=== PATIENT | female | born 1975 | race Caucasian/White ===

== ENCOUNTER 2020-08-28 16:49 | Emergency (ER) | payer OTHER ==
[~2020-08-28 16:49] MED LIST: CEFUROXIME500 MG PO; KEFLEX500 MG PO; MEDROL DOSEPAK 24 MG PO; NAPROSYN500 MG PO; ZOFRAN4 MG PO
[2020-08-28 19:15] LABS: HEMOGLOBIN 12.9 gm/dl (12.3-15.3); RED BLOOD COUNT 4.74 M/UL (4.00-5.10); WHITE BLOOD COUNT 7.5 K/UL (4.5-11.0)
[2020-08-28 19:45] LABS: BUN/CREATININE RATIO 23 (0-10)
[2020-08-29] MEDS ORDERED: ASPIRIN CHEWABL81 MG PO (00:52)
[2020-08-29] MEDS ORDERED: DOXYCYCLINE HY100 MG PO (00:52)
[2020-08-29] MEDS ORDERED: DECADRON6 MG PO (00:52)
== END 2020-08-29 01:20 | disposition home or self-care (01) ==
LOC: ER1 16:49
PROVIDERS: Emergency Medicine
DX: U07.1 COVID-19 (principal); J12.82 Pneumonia due to coronavirus disease 2019; I48.91 Unspecified atrial fibrillation; E66.9 Obesity, unspecified; E11.9 Type 2 diabetes mellitus without complications; I10 Essential (primary) hypertension; Z79.01 Long term (current) use of anticoagulants
CPT/HCPCS: 36600; 71045; 71046; 80053; 81001; 82550; 82553; 82803; 83605; 83874; 84484; 85025; 87040; 93005; 99285; M0239

== ENCOUNTER 2020-11-06 20:10 | Emergency (ER) | payer OTHER ==
[~2020-11-06 20:10] MED LIST changes: +ASPIRIN CHEWABL81 MG PO; +DECADRON6 MG PO; +DOXYCYCLINE HY100 MG PO
[2020-11-07 00:25] LABS: HEMOGLOBIN 12.7 gm/dl (12.3-15.3); RED BLOOD COUNT 4.51 M/UL (4.00-5.10); WHITE BLOOD COUNT 13.4 K/UL (4.5-11.0)
[2020-11-07 00:42] LABS: BUN/CREATININE RATIO 25 (0-10)
== END 2020-11-07 05:52 | disposition short-term general hospital (02) ==
LOC: ER1 20:10
PROVIDERS: Emergency Medicine
DX: R42 Dizziness and giddiness (principal); I48.91 Unspecified atrial fibrillation; H55.00 Unspecified nystagmus; F41.9 Anxiety disorder, unspecified; I10 Essential (primary) hypertension; Z79.899 Other long term (current) drug therapy; Z20.822 Contact with and (suspected) exposure to COVID-19; Z88.5 Allergy status to narcotic agent; Z90.710 Acquired absence of both cervix and uterus
CPT/HCPCS: 51702; 70496; 70498; 71045; 80053; 81001; 82550; 82553; 83735; 83874; 84484; 85025; 85610; 85730; 93005; 96374; 96376; 99285; J2405; Q9967; U0002

== ENCOUNTER 2021-08-12 12:38 | Emergency (ER) | payer OTHER ==
[2021-08-12 14:14] LABS: HEMOGLOBIN 12.7 gm/dl (12.3-15.3); RED BLOOD COUNT 4.57 M/UL (4.00-5.10); WHITE BLOOD COUNT 13.1 K/UL (4.5-11.0)
[2021-08-12 14:30] LABS: BUN/CREATININE RATIO 14 (0-10)
[2021-08-12] MEDS ORDERED: IBUPROFEN800 MG PO (17:48)
[2021-08-12] MEDS ORDERED: CEFUROXIME500 MG PO (17:48)
== END 2021-08-12 18:45 | disposition home or self-care (01) ==
LOC: ER1 12:38
PROVIDERS: Physician Assistant
DX: N39.0 Urinary tract infection, site not specified (principal); I48.91 Unspecified atrial fibrillation; I10 Essential (primary) hypertension; Z87.442 Personal history of urinary calculi; Z88.5 Allergy status to narcotic agent; Z79.01 Long term (current) use of anticoagulants
CPT/HCPCS: 80048; 81001; 85025; 96374; 96375; 99284; J0696; J1170; J1885; J2405

== ENCOUNTER 2021-12-29 20:24 | Emergency (ER) | payer OTHER ==
[~2021-12-29 20:24] MED LIST changes: +IBUPROFEN800 MG PO
[2021-12-29 21:14] LABS: HEMOGLOBIN 12.6 gm/dl (12.3-15.3); RED BLOOD COUNT 4.71 M/UL (4.00-5.10); WHITE BLOOD COUNT 12.4 K/UL (4.5-11.0)
[2021-12-29 21:41] LABS: BUN/CREATININE RATIO 18 (0-10)
== END 2021-12-29 23:48 | disposition home or self-care (01) ==
LOC: ER1 20:24
PROVIDERS: Physician Assistant
DX: R00.2 Palpitations (principal); D72.829 Elevated white blood cell count, unspecified; E11.9 Type 2 diabetes mellitus without complications
CPT/HCPCS: 80053; 81001; 82550; 82553; 84439; 84443; 84484; 85025; 87086; 93005; 96374; 99285; J0360